=== PATIENT | female | born 1985 | race Caucasian/White ===

== ENCOUNTER 2016-10-21 14:58 | Emergency (ER) | payer SELFPAY ==
[2016-10-21 15:26] VITALS: RESP 16
--- NOTE | 2016-10-21 16:07 | UCPHY ---
H & P Patient Type: New Chief Complaint Nursing Narrative: pt reports SOB, cough, fatigue, chest pressure. Pt reports started 08/25/16, worse this week. Time Seen by Provider: 10/21/16 15:23 HPI/ROS: 31-year-old female presents complaining of extreme shortness of breath even with the smallest task. She has noticed this just over the last couple of days. She is on oral contraceptives and is also a smoker. She has no family history of blood clots. Review of systems General no fever no chills no weakness, positive fatigue HEENT no eye pain no eye discharge. No eye redness, no sore throat Respiratory positive cough, positive shortness of breath Cardiac no chest pain, no peripheral edema GI no abdominal pain, no diarrhea, no constipation, no nausea, no vomiting no flank pain, no hematuria, no dysuria Musculoskeletal no myalgias, no joint pain Heme no easy bruising, no easy bleeding Endo no polyuria, no polydipsia Skin no rashes, no pruritus Neuro no syncope, no dizziness, no headaches Psych is no suicidal ideation, no homicidal ideation Source: Patient Exam Limitations: No limitations - Personal History LMP (Females 10-55): Unknown Current Tetanus/Diphtheria Vaccine: Yes - Medical/Surgical History Hx Asthma: No Hx Chronic Respiratory Disease: No Hx Diabetes: No Hx Cardiac Disease: No Hx Renal Disease: No Hx Cirrhosis: No Hx Alcoholism: No Hx HIV/AIDS: No Hx Splenectomy or Spleen Trauma: No Other PMH: anxiety, irregular heart beat - Family History Significant Family History: No pertinent family hx - Social History Smoking Status: Heavy smoker Alcohol Use: Occasionally - Physical Exam Exam: 31-year-old female alert and oriented no acute distress nontoxic appearance HEENT atraumatic normocephalic, extraocular muscles intact, anicteric Oropharynx negative for erythema negative exudate, tolerating her own secretions Neck supple no meningismus Lungs clear to auscultation bilaterally Heart regular rate and rhythm without murmur rub or gallop Abdomen nondistended normoactive bowel sounds soft nontender Back no CVA tenderness, no step-offs, no spinal tenderness Extremities no cyanosis clubbing or edema Neuro alert and oriented, no focal deficits Constitutional: Initial Vital Signs Temperature (C) 36.5 C 10/21/16 15:22 Heart Rate 80 10/21/16 15:22 Respiratory Rate 16 10/21/16 15:22 Blood Pressure 131/88 H 10/21/16 15:22 O2 Sat (%) 99 10/21/16 15:22 O2 Delivery Mode Room Air Allergies/Adverse Reactions: No Known Allergies Allergy (Unverified 10/21/16 17:55) Home Medications: Medication Instructions Recorded AZITHROMYCIN [Z-PACK] 250 mg PO DAILY #6 tab 10/21/16 Medical Decision Making - Diagnostics EKG Interpretation: Normal sinus rhythm, no ectopy ED Course/Re-evaluation: Patient seen and evaluated for cough, shortness of breath on exertion patient has risk factors for pulmonary embolus including being on oral contraceptives and a heavy smoker. Chest x-ray negative, consistent with bronchitis CT chest negative for pulmonary embolus Labs within normal limits Differential diagnosis Pulmonary embolus, bronchitis, pneumonia, URI, asthma, COPD Pulmonary embolus ruled out with CT scan No evidence for pneumonia on chest x-ray Impression Acute on chronic bronchitis Plan Z-Lino Advise follow up with PCP Return as needed - Data Points Laboratory Results: Laboratory Results 10/21/16 16:25 10/21/16 16:25 Departure - Departure Disposition: Home, Routine, Self-Care Clinical Impression: Bronchitis Condition: Good Instructions: Acute Bronchitis (ED) Referrals: NONE *PRIMARY CARE P,. [Primary Care Provider] - As per Instructions Prescriptions: AZITHROMYCIN [Z-PACK] 250 mg PO DAILY #6 tab - PQRS PQRS Measurement: na
--- NOTE | 2016-10-21 16:22 | CPEKG ---
Heart Rate: 61 RR Interval: 984 P-R Interval: 128 QRSD Interval: 82 QT Interval: 412 QTC Interval: 415 P Viking: -7 QRS Viking: 88 T Wave Viking: 27 EKG Severity - NORMAL ECG - EKG Impression: SINUS RHYTHM Electronically Signed By: Munir Fritz 22-Oct-2016 10:56:14
[2016-10-21 16:30] LABS: % IMMATURE GRANULYOCYTES 0.2 % (0.0-1.1); ABSOLUTE IMMATURE GRANULOCYTES 0.02 10^3/uL (0.00-0.10); ADD DIFF? NO; ADD MORPH? NO; ADD SCAN? NO; ATYPICAL LYMPHOCYTE FLAG 10 (0-99); FRAGMENT RBC FLAG 0 (0-99); HEMATOCRIT 44.5 % (38.0-47.0); HEMOGLOBIN 15.5 g/dL (12.6-16.3); LEFT SHIFT FLG 0 (0-99); LIPEMIA HEMOLYSIS FLAG 90 (0-99); MEAN CELL HEMOGLOBIN 30.9 pg (27.9-34.1); MEAN CELL HEMOGLOBIN CONCENTR. 34.8 g/dL (32.4-36.7); MEAN CELL VOLUME 88.8 fL (81.5-99.8); PLATELET CLUMPS FLAG 0 (0-99); PLATELET COUNT 267 10^3/uL (150-400); RED BLOOD CELL COUNT 5.01 10^6/uL (4.18-5.33); RED CELL DISTRIBUTION WIDTH 11.8 % (11.5-15.2)
[2016-10-21 16:58] LABS: ALANINE AMINOTRANSFERASE 18 IU/L (9-52); ALBUMIN 3.9 g/dL (3.5-5.0); ALKALINE PHOSPHATASE 40 IU/L (38-126); ANION GAP 12 mEq/L (8-16); ASPARTATE AMINOTRANSFERASE 22 IU/L (14-46); BILIRUBIN,TOTAL 0.9 mg/dL (0.1-1.4); CALCIUM 9.7 mg/dL (8.5-10.4); CARBON DIOXIDE 25 mEq/l (22-31); CHLORIDE 105 mEq/L (97-110); CREATININE 0.7 mg/dL (0.6-1.0); GLOMERULAR FILTRATION RATE > 60; GLUCOSE 91 mg/dL (70-100); POTASSIUM 4.2 mEq/L (3.5-5.2); SODIUM 142 mEq/L (134-144); TOTAL PROTEIN 7.6 g/dL (6.3-8.2)
[2016-10-21 17:03] LABS: TROPONIN I < 0.012 ng/mL (0-0.034)
[2016-10-21] MEDS ORDERED: IOPAMIDOL (ISOVUE 370) 100 ML BTL IV ONE (17:55)
[2016-10-21 18:46] LABS: INR 1.04 (0.83-1.16); PROTIME(PATIENT) 13.3 SEC (12.0-15.0)
[2016-10-21 18:52] VITALS: BP 117/82; PULSE 67; TEMP 98.4; O2SAT 98
[2016-10-21 18:57] LABS: APTT 29.6 SEC (23.0-38.0)
== END 2016-10-21 19:11 | disposition home or self-care (01) ==
LOC: CED 14:58
DX: J40 Bronchitis, not specified as acute or chronic (principal); F17.200 Nicotine dependence, unspecified, uncomplicated
CPT/HCPCS: 71020-PO; 71275-PO; 80053-PO; 81025-PO; 84443-PO; 84484-PO; 85025-PO; 85378-PO; 85610-PO; 85730-PO; G0463-PO; Q9967